=== PATIENT | female | born 1985 | race Caucasian/White ===

== ENCOUNTER → 2019-02-08 09:14 | Outpatient (CLI) | payer BC | END | disposition home or self-care (01) | LOC: D.US 09:14 | PROVIDERS: ATTEND Internal Medicine | DX: E04.1 Nontoxic single thyroid nodule (principal) ==

== ENCOUNTER → 2019-03-01 09:44 | Outpatient (CLI) | payer BC | END | disposition home or self-care (01) | LOC: D.US 02-25 10:00 | PROVIDERS: ATTEND Internal Medicine | DX: E04.1 Nontoxic single thyroid nodule (principal) ==